=== PATIENT | male | born 1990 | race Caucasian/White ===

== ENCOUNTER 2021-06-28 23:29 | Observation (INO) ==
[2021-06-28] MEDS ORDERED: HYDROCODONE/ACETAMOPHEN 5/325MG TAB PO STA (23:49)
--- NOTE | 2021-06-29 | Emergency Department Note ---
History of Present Illness General Chief complaint: Elbow Injury/Pain Stated complaint: R ELBOW INJURY Time Seen by Provider: 06/28/21 23:41 History of Present Illness Maximum Pain Intensity: 6 This is a 31-year-old male presenting to the emergency department for evaluation of right elbow pain. 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 The patient was thrown in the ring towards an upright metal pole. The patient lost his balance and struck his elbow into the pole itself. The injury occurred about 1 hour prior to arrival. He did have some immediate numbness into the hand, however this has improved. He is reported to be up-to-date on his tetanus and there is a small laceration over the olecranon area. He does not report other injuries. Home Medications Medication Instructions Recorded Confirmed Type ondansetron 4 mg disintegrating 4 mg PO Q6H PRN #10 tab 06/29/21 Rx tablet oxycodone 5 mg tablet 5 - 10 mg PO Q4H PRN #20 tab MDD 6 06/29/21 Rx tablets Allergies Allergy/AdvReac Type Severity Reaction Status Date / Time amoxicillin Allergy Unknown HAPPENED Verified 06/29/21 00:25 A CHILD cefaclor [From Ceclor] Allergy Unknown HAPPENED Verified 06/29/21 00:25 A CHILD erythromycin base Allergy Unknown HAPPENED Verified 06/29/21 00:25 A CHILD Penicillins Allergy Unknown HAPPENED Verified 06/29/21 00:25 A CHILD Past Med/Surg History Medical History No chronic diseases present Surgical History No significant past surgical history Social History Smoking Status: Current some day smoker Do You Dip or Chew Tobacco: No; Tobacco Cessation Education Requested by Patient: No Hx Alcohol Use: Yes Alcohol type: beer Hx Substance Use: No Preferred Language: Faroese Communication Ability: Effective Minibus Driver Required: No Beliefs That Will Affect Care: None Current Living Situation: Family Other Information That Helps Us Care for You: No Feels Safe at Home: Yes Safety Concerns: Feels Safe At This Time Review of Systems A total of 10 systems reviewed and were otherwise negative Physical Exam Vital Signs Vital Signs - 24 hr 06/28/21 23:38 06/29/21 02:11 06/29/21 03:44 Temperature 36.3 C L Temperature Source Temporal Artery Scan Pulse Rate 107 H Pulse Rate [Right] 95 H 92 H Pulse Rhythm [Right] Regular Pulse Strength [Right] Normal Respiratory Rate 18 18 14 Respiratory Effort / Characteristics Non-Labored Spontaneous Respiratory Depth Normal Normal Respiratory Pattern Regular Blood Pressure 136/85 Blood Pressure [Left Arm] 119/91 96/60 L Blood Pressure Mean 102 Blood Pressure Mean [Left Arm] 100 72 Blood Pressure Position [Left Arm] Lying Pulse Oximetry 97 95 92 Oxygen Delivery Method Room Air Room Air Room Air Sepsis Recent Fever Within 48 Hours No Sepsis New/Unexplained Change in Mental Status N/A Sepsis Action Taken by Nursing No Action Required 06/29/21 06:00 06/29/21 12:01 Temperature 36.9 C Temperature Source Oral Pulse Rate 72 Pulse Rate [Right] 94 H Pulse Rhythm [Right] Pulse Strength [Right] Respiratory Rate 18 20 Respiratory Effort / Characteristics Respiratory Depth Respiratory Pattern Blood Pressure 122/68 Blood Pressure [Left Arm] 114/63 Blood Pressure Mean Blood Pressure Mean [Left Arm] 80 Blood Pressure Position [Left Arm] Pulse Oximetry 96 99 Oxygen Delivery Method Room Air Room Air Sepsis Recent Fever Within 48 Hours Sepsis New/Unexplained Change in Mental Status Sepsis Action Taken by Nursing VITALS: Vitals are noted on the nurse's note and reviewed by myself. Vital signs stable. GENERAL: Well-developed, well-nourished, white male, who is in no acute distress and resting comfortably. Patient is cooperative with the examination. HEAD: Normocephalic atraumatic. NECK: Supple without nuchal rigidity. No lymphadenopathy. No thyromegaly. Cervical spine is nontender. HEART: Regular rate and rhythm without murmurs gallops or rubs. LUNGS: Clear to auscultation bilaterally without wheezes, rales or rhonchi. No retractions or accessory muscle use. MUSCULOSKELETAL: There is notable erythema and edema surrounding the right elbow. Much of this appears at the distal humerus posteriorly. There is a 3 cm laceration over the right olecranon with minimal bleeding. Patient is with full sensation and range of motion to the hand. 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 No appreciable neurologic deficit distally. No significant tenderness of the right wrist. Patient is able to supinate and pronate, however flexing and extending at the elbow is very limited. NEURO: Patient was alert and oriented to person place and time. CN II through XII grossly intact. Course Administered Medications Docusate Sodium (Docusate Sodium 100 Mg Cap) 100 mg PO BID MAGALI Stop: 07/29/21 20:59 Last Admin: 06/29/21 20:01 Dose: Not Given Documented by: [id number] Hydromorphone HCl (Hydromorphone Inj 2 Mg/Ml Syr/Vial) 0.5 mg IV Q5M PRN PRN Reason: PACU Use Only-Pain Stop: 06/30/21 00:29 Last Admin: 06/29/21 16:50 Dose: 0.5 mg Documented by: [id number] Admin: 06/29/21 16:28 Dose: 0.5 mg Documented by: [id number] Promethazine HCl 12.5 mg/ (Sodium Chloride) 50.5 mls @ 204 mls/hr IV ONCE PRN PRN Reason: PACU Use Only-Nausea/Vomiting Stop: 06/30/21 00:30 Last Infusion: 06/29/21 17:42 Dose: 0 mls/hr Documented by: [id number] Admin: 06/29/21 16:37 Dose: 204 mls/hr Documented by: [id number] Lactated Ringer's (Lr) 1,000 mls @ 100 mls/hr IV .Q10H MAGALI Stop: 07/29/21 18:14 Last Admin: 06/29/21 19:07 Dose: 100 mls/hr Documented by: [id number] Oxycodone/Acetaminophen (Oxycodone/Acetaminophen 5mg/325mg Tab) 1 - 2 tab PO Q4H PRN PRN Reason: Pain Stop: 07/13/21 16:28 Last Admin: 06/29/21 19:51 Dose: 2 tab Documented by: [id number] Discontinued Medications Hydrocodone Bitart/Acetaminophen (Hydrocodone/Acetamophen 5/325mg Tab) 1 tab PO NOW STA Stop: 06/28/21 23:50 Last Admin: 06/29/21 00:01 Dose: 1 tab Documented by: [id number] Clindamycin Phosphate (Clindamycin Phos 300 Mg/2 Ml Vial) Confirm Administered Dose 600 mg .ROUTE .STK-MED ONE Stop: 06/29/21 12:47 Last Admin: 06/29/21 13:17 Dose: 600 mg Documented by: [id number] Hydromorphone HCl (Hydromorphone Inj 0.5 Mg/0.5 Ml Syr) Confirm Administered Dose 0.5 mg .ROUTE .STK-MED ONE Stop: 06/29/21 16:27 Last Admin: 06/29/21 16:41 Dose: Not Given Documented by: [id number] Sodium Chloride (Nss 1000ml) 1,000 mls @ 999 mls/hr IV .Q1H1M MAGALI Stop: 06/29/21 02:30 Last Infusion: 06/29/21 03:01 Dose: 0 mls/hr Documented by: [id number] Admin: 06/29/21 01:54 Dose: 999 mls/hr Documented by: [id number] Morphine Sulfate (Morphine Sulfate 4 Mg/Ml 1 Ml Carp\Vial) 4 mg IV Q30M PRN PRN Reason: Pain Stop: 07/13/21 01:20 Last Admin: 06/29/21 11:14 Dose: 4 mg Documented by: [id number] Admin: 06/29/21 08:18 Dose: 4 mg Documented by: [id number] Admin: 06/29/21 06:20 Dose: 4 mg Documented by: [id number] Ondansetron HCl (Ondansetron Inj 2 Mg/Ml 2 Ml Vial) 4 mg IV NOW STA Stop: 06/29/21 01:22 Last Admin: 06/29/21 06:27 Dose: 4 mg Documented by: [id number] Ondansetron HCl (Ondansetron Inj 2 Mg/Ml 2 Ml Vial) Confirm Administered Dose 4 mg .ROUTE .ST-MED ONE Stop: 06/29/21 06:23 Last Admin: 06/29/21 06:28 Dose: Not Given Documented by: [id number] Promethazine HCl (Promethazine Hcl Inj 25 Mg/Ml 1 Ml Vial) Confirm Administered Dose 25 mg .ROUTE .STK-MED ONE Stop: 06/29/21 16:28 Last Admin: 06/29/21 16:41 Dose: Not Given Documented by: [id number] Promethazine HCl (Promethazine Hcl Inj 25 Mg/Ml 1 Ml Vial) Confirm Administered Dose 25 mg .ROUTE .STK-MED ONE Stop: 06/29/21 16:33 Last Admin: 06/29/21 16:41 Dose: Not Given Documented by: [id number] Sodium Chloride (Sodium Chloride 0.9% 50 Ml Bag) Confirm Administered Dose 50 ml .ROUTE .[facility] ONE Stop: 06/29/21 16:36 Last Admin: 06/29/21 16:40 Dose: 50 ml Documented by: [id number] Medical Decision Making Differential Diagnosis Differential diagnosis includes, but is not limited to: Sprain, strain, fracture, dislocation, subluxation, contusion, and others Laboratory Data Result diagrams: 06/29/21 01:45 06/29/21 01:45 Lab Results 06/29/21 06/29/21 06/29/21 Range/Units 01:45 01:45 01:50 WBC 8.50 (4.8-10.8) K/uL RBC 4.97 (4.7-6.1) M/uL Hgb 14.9 (14.0-18.0) g/dL Hct 44.4 (42-52) % MCV 89.3 (80-100) fL MCH 30.0 (25-34) pg MCHC 33.6 (32-36) g/dL RDW Std Deviation 43.2 (36.4-46.3) fL RDW Coeff of Karla 13.2 (11.5-14.5) % Plt Count 258 (130-400) K/uL MPV 9.8 (7.4-10.4) fL Immature Gran % (Auto) 0.2 % Neut % (Auto) 64.4 % Lymph % (Auto) 30.2 % Jay % (Auto) 3.6 % Eos % (Auto) 1.1 % Baso % (Auto) 0.5 % Neut # (Auto) 5.47 (1.4-6.5) K/uL Lymph # (Auto) 2.57 (1.2-3.4) K/uL Jay # (Auto) 0.31 (0.11-0.59) K/uL Eos # (Auto) 0.09 (0-0.5) K/uL Baso # (Auto) 0.04 (0-0.2) K/uL Immature Gran # (Auto) 0.02 (0.00-0.02) K/uL Sodium 138 (136-145) mmol/L Potassium 4.2 (3.5-5.1) mmol/L Chloride 100 (98-107) mmol/L Carbon Dioxide 26 (21-32) mmol/L Anion Gap 12 H (3-11) BUN 13 (6-23) mg/dl Creatinine 0.94 (0.6-1.4) mg/dl Est Cr Clr Drug Dosing 112.2 ml/min Est GFR ( Amer) 123.0 ml/min Est GFR (Non-Af Amer) 106.1 ml/min BUN/Creatinine Ratio 13.8 (10-20) Glucose 149 H (70-99(Fasting)) mg/dl Calcium 8.9 (8.5-10.1) mg/dl Total Bilirubin 0.4 (0.2-1.0) mg/dl AST 24 (13-39) U/L ALT 30 (7-52) U/L Alkaline Phosphatase 55 (34-104) U/L Total Protein 7.5 (6.0-8.3) gm/dl Albumin 4.6 (3.4-5.0) gm/dl Globulin 2.9 (2.5-4.0) gm/dl Albumin/Globulin Ratio 1.6 (0.9-2) SARS-CoV-2, RNA, NAAT NEGATIVE (NEGATIVE) Imaging Data Radiologist's Impression: Elbow X-Ray 06/29/21 00:00 FL elbow RT 2V CLINICAL HISTORY: RT ELBOW ORIF COMPARISON STUDY: Right elbow radiographs June 28, [address] of the right elbow performed earlier today. FLUOROSCOPY TIME: 28 seconds. FLUOROSCOPIC IMAGES: 5 FINDINGS: Fluoroscopy was provided during open reduction and internal fixation of the right olecranon fracture. Fracture alignment has markedly improved and appears near anatomic. Plate and screw fixation is noted. There are no unexpected radiopaque foreign bodies. IMPRESSION: Fluoroscopy provided during open reduction and internal fixation of the right olecranon fracture. ACT 112: Negative or not required by law. Electronically signed by: Luiz Winn M.D. 06/29/2021 4:00 PM [facility] Narrative Physical exam and history were performed. Nursing notes, EMR, and Medication List were personally reviewed. Patient appears to have suffered injury to his right elbow as described above. There is laceration over the olecranon and this is an area of discomfort for the patient. X-rays were performed and reviewed by myself and radiology showing a comminuted fracture. This does seem to be an open fracture, as the laceration s eems to communicate in the area of biggest injury. He does not have neurologic deficit. I discussed the case with the on-call orthopedist, Dr. Nowak, who will take the patient to the operating room for washout and repair. IV access was established and IV clindamycin was provided. The wound was temporarily dressed with antibiotic ointment and pressure dressing. The patient was given IV morphine and Zofran for comfort. His tetanus is reported to be up-to-date. I did speak with the patient's mother, Lana, , at the patient's request and kept her up-to-date on his status. The patient remained in stable condition until going to the OR. Please see the orthopedic dictation for further patient course, plan, and disposition. The chart was completed utilizing [employer] Speech Voice Recognition Software. Grammatical errors, random word insertions, pronoun errors, and incomplete sentences are an occasional consequence of this system due to software limitations, ambient noise, and hardware issues. Any formal questions or concerns about the content, text, or information contained within the body of this dictation should be directly addressed to the provider for clarification. . Impression & Plan Open fracture of right olecranon Discharge Plan Visit Data Chief Complaint: Elbow Injury/Pain Stated Complaint: R ELBOW INJURY ED Provider: Yojana Gonzalez ED Midlevel Provider: Rich Robledo Discharge Problem: Open fracture of right olecranon Patient Disposition: Admitted As Inpatient Discharge Instructions Interventions: ED Discharge Assessment Last Done: 06/29/21 12:01
[2021-06-29] MEDS ORDERED: ONDANSETRON INJ 2 MG/ML 2 ML VIAL IV STA (01:21)
--- NOTE | 2021-06-29 01:23 | Orthopedic Consultation ---
Date of Service June 29, 2021 Assessment & Plan (1) Open fracture of right olecranon: Grade 1 open fracture of the right proximal extra-articular olecranon. This traumatic wound require formal irrigation debridement due to bony involvement. IV antibiotics were ministered overnight in emergency room. He is on-call to the OR today. Will obtain CT to better visualize the comminuted fracture and ensure no intra-articular extension that require stabilization. I discussed the injury with the patient in the emergency room. My recommendation is formal irrigation debridement to reduce the risk infection. For this open wound we able to explore whether they triceps removal requiring pa rtial repair. CT will better evaluate the fracture but is likely some of these fracture fragments will need to be debrided and/or internally fixed. Obtain informed consent for right elbow wound irrigation debridement, possible triceps repair and or olecranon open reduction internal fixation. We discussed the risks include but not limited to infection, neurovascular injury, need for repeat or revision surgery, nonunion/malunion, symptomatic implants, pain syndromes, blood clots and complications related anesthesia. As per be questions, demonstrate understanding, wants to proceed with surgery. His preference is to return home today if possible. We discussed follow-up in 1 to 2 weeks in orthopedic clinic. He is going to contact his primary care to help with this. History of Present Illness Reason for Consultation: Right elbow injury Requesting Physician: . 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 The elbow was covered by a short sleeve. He had subsequent swelling and noticed bleeding. He was splinted by a nurse on scene and sent to the emergency room for evaluation. Orthopedics was consulted for concern of open olecranon fracture. Patient denies any previous injuries to that elbow. Denies any numbness or tingling other than at the time of the initial injury. Allergies Allergy/AdvReac Type Severity Reaction Status Date / Time amoxicillin Allergy Unknown HAPPENED Verified 06/29/21 00:25 A CHILD cefaclor [From Ceclor] Allergy Unknown HAPPENED Verified 06/29/21 00:25 A CHILD erythromycin base Allergy Unknown HAPPENED Verified 06/29/21 00:25 A CHILD Penicillins Allergy Unknown HAPPENED Verified 06/29/21 00:25 A CHILD Home Medications Medication Instructions Recorded Confirmed Type No Known Home Medications 06/29/21 06/29/21 History Past Med/Surg History Medical History No chronic diseases present Surgical History No significant past surgical history Social History Smoking Status: Current every day smoker Preferred Language: Swedish Feels Safe at Home: Yes Review of Systems All systems reviewed & are unremarkable except as noted in HPI & below. Physical Exam Secondary trauma survey remarkable. Right upper extremity: There is a 10 to 12 mm laceration its longitudinal just posterior to the olecranon that appears full-thickness. There is no active bleeding or drainage on this inspection. He can extend his elbow against gravity. There is swelling propagating up the posterior arm. He is tender to palpation along the tricep and posterior compartment of the arm. Full active range of motion of his digits and wrist. Sensations grossly intact to light touch in all hand distributions. He has strong distal pulses. Constitutional well developed and well nourished; no acute distress and not intoxicated appearing ENMT external ear and nose normal, oropharynx normal Respiratory normal respiratory effort; no respiratory distress Cardiovascular Extremities: normal capillary refill; no edema Skin no rashes, warm and dry Psychiatric A+Ox3, euthymic affect Results & Data Results & Data Laboratory Results H & H 06/29/21 Range/Units 01:45 Hgb 14.9 (14.0-18.0) g/dL Hct 44.4 (42-52) % Diagnostic Findings Right elbow x-rays: There is a comminuted fracture that is part of the extra- articular and proximal olecranon. Potential triceps compromised by this fracture. Shadowing through the intra-articular portion makes it difficult to discern any intra-articular extension. CT would evaluate better and allow for preop planning. PG Care Time/CCT Total # of Minutes Spent Total Time Spent with Patient: Total time spent is greater than 50% in coordination of care (as documented) at patient's floor/unit and/or counseling patient: Coding Level of Care Code 75504 Inpt Consult Level 4 (57 - DECISION FOR SURGERY) Diagnoses Open fracture of right olecranon S52.021B
[2021-06-29] MEDS ORDERED: SODIUM CHLORIDE 0.9% 1000ML 1,000 ML IV SCH (01:30)
[2021-06-29 02:01] LABS: Basophils # (auto) 0.04 K/uL (0-0.2); Basophils % (auto) 0.5 %; Eosinophils # (auto) 0.09 K/uL (0-0.5); Eosinophils % (auto) 1.1 %; Hematocrit (blood only) 44.4 % (42-52); Hemoglobin 14.9 g/dL (14.0-18.0); Immature Granulocytes # (auto) 0.02 K/uL (0.00-0.02); Immature Granulocytes % (auto) 0.2 %; Lymphocytes # (auto) 2.57 K/uL (1.2-3.4); Lymphocytes % (auto) 30.2 %; Mean Corpuscular Hgb Conc 33.6 g/dL (32-36); Mean Corpuscular Volume 89.3 fL (80-100); Mean Platelet Volume 9.8 fL (7.4-10.4); Monocytes # (auto) 0.31 K/uL (0.11-0.59); Monocytes % (auto) 3.6 %; Neutrophils # (auto) 5.47 K/uL (1.4-6.5); Neutrophils % (auto) 64.4 %; Platelet Count 258 K/uL (130-400); RDW Coefficient of Variation 13.2 % (11.5-14.5); RDW Standard Deviation 43.2 fL (36.4-46.3); Red Blood Count 4.97 M/uL (4.7-6.1)
[2021-06-29 02:23] LABS: Albumin Globulin Ratio 1.6 (0.9-2); Albumin Level 4.6 gm/dl (3.4-5.0); BUN Creatinine Ratio 13.8 (10-20); Bilirubin,Total 0.4 mg/dl (0.2-1.0); Calcium 8.9 mg/dl (8.5-10.1); Creatinine Clr Calc Pharmacy 112.2 ml/min; Est GFR (Non-African American) 106.1 ml/min; Globulin 2.9 gm/dl (2.5-4.0); Potassium 4.2 mmol/L (3.5-5.1); Total Protein 7.5 gm/dl (6.0-8.3)
[2021-06-29] MEDS: MoRPHine SULFATE 4 MG/ML 1 ML CARP\\VIAL IV PRN ×3 (06:20→11:14)
[2021-06-29] MEDS ORDERED: ONDANSETRON INJ 2 MG/ML 2 ML VIAL ONE ×2 (06:22→13:31)
--- NOTE | 2021-06-29 08:03 | XRay Report ---
XR elbow RT min 3V routine CLINICAL HISTORY: Injury/laceration COMPARISON: None FINDINGS: Note is made of a displaced, markedly comminuted fracture of the posterior olecranon. Nume lilly bone fragments are noted. Fracture is displaced at least 1.2 cm. There is soft tissue gas within the posterior soft tissues of the distal to mid right upper arm. No acute fracture of the proximal r ight radius is noted. There is no acute fracture the distal right humerus. There is no evidence for a joint effusion. IMPRESSION: Displaced, markedly comminuted fracture of the posterior olecranon with numerous bone fra gments and soft tissue gas extending superiorly, as described above. Findings suggest an open olecran on fracture. ACT 112: Negative or not required by law. Electronically signed by: Luiz Winn M.D. 06/29/2021 8:02 AM
--- NOTE | 2021-06-29 09:15 | CT Scan Report ---
CT OF THE RIGHT ELBOW WITHOUT CONTRAST CLINICAL HISTORY: Olecranon fx - intra-articular extension? Preoperative. COMPARISON STUDY: Right elbow radiographs June 28, 2027 at 11:53 PM. TECHNIQUE: Axial images of the right elbow were obtained without IV contrast. Sagittal and coronal re constructions were viewed. Automated exposure control was utilized for the study. A dose lowering te chnique was utilized adhering to the principles of ALARA. FINDINGS: Note is made of an acute moderately displaced, markedly comminuted fracture of the posterio r right olecranon. Fracture is displaced up to 2 cm. There are numerous associated fracture fragments . Intra-articular extension of fracture is noted. No intra-articular bone fragments are present. Mult iple locules of intra-articular gas are noted. There is gas adjacent to the fracture as well as exten ding superiorly into the posterior aspect of the distal right upper arm. No acute fracture of the dis dani right humerus or proximal right radius is identified. No osseous lesions are identified. Soft tis sues of the right elbow are suboptimally assessed by CT. Posterior soft tissue swelling is noted as w ell as a skin defect consistent with laceration. A few tiny subcutaneous radiodensities measure up to 3 mm. IMPRESSION: 1. Acute moderately displaced markedly comminuted posterior right olecranon fracture with intra-artic ular extension of fracture. No intra-articular bone fragments. Soft tissue gas consistent with open f racture with intra-articular extension of gas. 2. Posterior right elbow soft tissue swelling with laceration. A few tiny subcutaneous densities like ly reflect bone fragments although foreign bodies could appear similar. ACT 112: Negative or not required by law. Electronically signed by: Luiz Winn M.D. 06/29/2021 9:14 AM
--- NOTE | 2021-06-29 09:50 | Anesthesiology Consultation ---
Date of Service June 29, 2021 Assessment & Plan Chart Review Chart Review: Acceptable Risk for Surgery and Patient NOT seen in Pre Admission Testing Consults Requested none ASA ASA2 Proposed Anesthesia Anesthesia Type: General Regional Regional Laterality: Right Site: Supraclavicular Additional Comments: covid test neg. History Surgery Operation Date: 06/29/21 10:00 Proposed Procedures p Incision and Drainage Extremity(Right) - Christopher Nowak MD s Biceps Tendon Rupture Repair(Right) - Christopher Nowak MD Height/Weight Height: 5 ft 6 in Weight: 81.8 kg Allergies Allergy/AdvReac Type Severity Reaction Status Date / Time amoxicillin Allergy Unknown HAPPENED Verified 06/29/21 00:25 A CHILD cefaclor [From Ceclor] Allergy Unknown HAPPENED Verified 06/29/21 00:25 A CHILD erythromycin base Allergy Unknown HAPPENED Verified 06/29/21 00:25 A CHILD Penicillins Allergy Unknown HAPPENED Verified 06/29/21 00:25 A CHILD Medications Home Medications Medication Instructions Recorded Confirmed Last Taken No Known Home Medications 06/29/21 06/29/21 Unknown Active Medications Generic Name Dose Route Start Last Admin Trade Name Freq PRN Reason Stop Dose Admin Morphine Sulfate 4 mg 06/29/21 01:21 06/29/21 08:18 Morphine Sulfate 4 Mg/Ml 1 Ml Carp\Vial IV 07/13/21 01:20 4 mg Q30M PRN Administration Pain Past Medical History Medical History No chronic diseases present Exercise / Class Metabolic Activity 1 > 8 Run/Swim/Ski/Tennis Past Surgical History Surgical History No significant past surgical history Past Anesthesia History No Hx of Anesthesia Complications and No Family Hx of Anesthesia Complications History of PONV No Hx of PONV and No Hx of Motion Sickness Social History Smoking Status: Current every day smoker tobacco type: cigarettes Physical Exam Vital Signs Last Vital Signs Temp 36.3 C L 06/28/21 23:38 Pulse 94 H 06/29/21 06:00 Resp 18 06/29/21 06:00 BP 114/63 06/29/21 06:00 Pulse Ox 96 06/29/21 06:00 Testing Laboratory Results 06/29/21 01:45 06/29/21 01:45
[2021-06-29] MEDS ORDERED: fentaNYL citrate 100 MCG/2 ML VIAL ONE (09:53)
[2021-06-29] MEDS ORDERED: MIDAZOLAM HCL 1 MG/ML 2ML VIAL ONE (09:53)
[2021-06-29] MEDS ORDERED: BUPIVACAINE 0.5 % 5 MG/1 ML MPF 30ML VIAL ONE (12:00)
[2021-06-29] MEDS ORDERED: CLINDAMYCIN PHOS 300 MG/2 ML VIAL ONE (12:46)
[2021-06-29] MEDS ORDERED: PROPOFOL IV EMULSION 10 MG/ML 20 ML VIAL IV ONE (13:31)
[2021-06-29] MEDS ORDERED: GLYCOPYRROLATE 0.2 MG/ML VIAL ONE (13:31)
[2021-06-29] MEDS ORDERED: NEOSTIGMINE METHYLSULFATE 1 MG/ML 10ML VIAL ONE (13:31)
[2021-06-29] MEDS ORDERED: DEXAMETHASONE SOD INJ 4 MG/ML VIAL ONE (13:31)
[2021-06-29] MEDS ORDERED: ROCURONIUM BROMIDE 10 MG/ML 5 ML VIAL IV ONE (13:31)
[2021-06-29] MEDS ORDERED: LIDOCAINE 2% 2 ML VIAL/AMP(20MG/ML) INFIL ONE (13:31)
[2021-06-29] MEDS ORDERED: KETOROLAC 30 MG/ML VIAL ONE (15:36)
--- NOTE | 2021-06-29 16:01 | Fluoroscopy Report ---
FL elbow RT 2V CLINICAL HISTORY: RT ELBOW ORIF COMPARISON STUDY: Right elbow radiographs June 28, [address] of the right elbow performed [facility] today. FLUOROSCOPY TIME: 28 seconds. FLUOROSCOPIC IMAGES: 5 FINDINGS: Fluoroscopy was provided during open reduction and internal fixation of the right olecranon fracture. Fracture alignment has markedly improved and appears near anatomic. Plate and screw fixati on is noted. There are no unexpected radiopaque foreign bodies. IMPRESSION: Fluoroscopy provided during open reduction and internal fixation of the right olecranon fracture. ACT 112: Negative or not required by law. Electronically signed by: Luiz Winn M.D. 06/29/2021 4:00 PM
--- NOTE | 2021-06-29 16:18 | Operative Report ---
PG Post Operative Report Pre & Post Diagnosis Operation Date: 06/29/21 10:00 Pre-Op Diagnosis: Open fracture of right olecranon Post-Op Diagnosis: Open fracture of right olecranon, triceps rupture I identified the patient and participated in the time-out.: Yes Procedure Operation Date: 06/29/21 10:00 Actual Procedures p Incision and Drainage Extremity(Right) - Christopher Nowak MD s Triceps Tendon Repair(Right) - Christopher Nowak MD s Open Reduction Internal Fixation Elbow - Christopher Nowak MD Surgeon Christopher Nowak MD Metal Fitter Ariel Barclay PA-C Estimated Blood Loss 5 Findings See Below This GustiloAnderson grade 2 olecranon fracture with disruption of the triceps insertion on the ulnar side. There was comminution and intra-articular extension to the most proximal aspect of the olecranon. It was stabilized with 2 interfragmentary 2.7 millimeter screws, variable angle proximal olecranon locking plate, and a tunnel double row triceps repair. All [employer] hardware: 2.7/3.5 variable angle locking proximal olecranon plate, 2.7 mm cortical screws of 18 and 48 and 50 mm in length, 2.7 variable angle locking screw 26 and 30 mm, and 3.5 cortical screws of 20 and 24 mm. Tricep repair included 2 Arthrex 2 mm fiber tape whipstitches secured into a single 4.75 bio composite push lock after passage thru bone tunnels. 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 He immediate pain and subsequent bleeding. He difficulty with triceps extension due to pain. He was admitted through the emergency room with an open olecranon fracture. Has been n.p.o. overnight for irrigation debridement today after receiving IV antibiotics in the ER. We discussed the open nature of the injury requirement for parenteral antibiotic therapy and formal debridement. Also discussed his surgery may involve ORIF of the olecranon plus or minus the triceps repair depending on the nature of the injury pattern after intraoperative inspection. Discussed the risk benefits in detail, as outlined in the preop note. Informed consent was obtained in the ER. Description of Procedure On the day of surgery, the patient was greeted in the preoperative holding area. The informed consent was reviewed and confirmed by myself and the patient. The patient identified the surgical site and was marked by me. The patient was then turned over to anesthesia. The patient was taken the operating room. Anesthesia was induced. He was then placed in lateral decubitus position with a beanbag and axillary roll. The operative extremity was draped over a bone foam humerus pillow secured with a radiolucent hand table passed underneath his torso padding. Spot fluoroscopic views were obtained to ensure adequate visualization. Nonsterile tourniquet was placed high in the arm. The operative upper extremity was prepped and draped usual sterile fashion. Surgical timeout was called by the chemistry technician nurse and verified by present. Antibiotics been infused and equipment is available and functional. We exsanguinated the extremity with the Esmarch bandage and the tourniquet was inflated to 250 mmHg for a total of 120 minutes. Incision was planned and carried out sharply over the olecranon in a curvilinear fashion over the most prominent aspect. The traumatic wound was about 2 cm and the edges were incised back to viable skin. Subcutaneous bursal tissue was excised in the injury zone. We explored the fracture site and this involved comminution of the ulnar side with a sagittal split of the olecranon involving some the intra-articular fragments at the most proximal aspect of the olecranon. This communicated down to the ulnar groove. The triceps insertion had a longitudinal split and was traumatically dissected away from some of the proximal fragments. This disconnected the triceps on its ulnar 50% footprint. We exploited the sagittal nature of this triceps split to visualize the proximal fragments. Attention was then directed to the ulnar nerve to ensure its safety. Dissection was carried out using tenotomy scissors in the usual pattern, unroofing the cubital tunnel. A vessel loop was placed around the ulnar nerve to identify and keep it safe throughout the dissection and procedure. The fracture fragments were thoroughly irrigated. 2 L of normal saline was run through the joint and around the fracture fragments. All fracture hematoma and debris was removed. There were 3 main fracture fragments that were comminuted but salvageable. There was most proximal aspect which involved a significant piece of the posterior cartilage. Is also comminuted piece of the ulnar side of the cortex and deep intramedullary bone was able to be fit back in. Provisional reduction was accomplished using [id number] clamps and 0.45 K wires. The dorsal aspect of the ulna was approached and subperiosteal elevation was carried out on the medial lateral aspect of the ulna. We used fluoroscopy to confirm articular congruity and fracture reduction. Reduction was acceptable. A 2.7/3.5 variable angle locking plate from [employer] was then positioned using fluoroscopy. This captured the proximal fragment well. It was slid down over the provisional K wire. It was then pinned distally along the shaft. A 2 mm drill bit was then passed capturing the proximal fragment and directed distal and dorsal. This was a bicortical trajectory. A 2.7 millimeter screw of 48 mm length was then placed to achieve compression and stabilize the most proximal articular fragment. The provisional K wire was removed and the variable angle drill guide was used to direct another cortical screw with 50 mm in length as a second purchase on that proximal fragment the did reduce the joint well. We then moved to the shaft and use the sliding compression hole to sink down the plate to the shaft limit further reduce the fracture. With the main articular fracture secured, directed attention to the ulnar wall the olecranon. I had to reposition this fragment on its small K wire to better fit into the cortical keys. We then used another 2 7 interfragmentary screw in a transverse bicortical fashion to capture this piece. The variable angle locking guide was used once again to achieve another locking purchase on the proximal side just distal to the articular margin. A secondary shaft screw was placed to complete the fixation. After the fracture fixation we still had a bare olecranon on the ulnar side of the triceps footprint. For that reason I performed a standard tunnel double row repair using the Paci technique. Fluoroscopic imaging was used to direct 2 mm drills on either side of the plate through the proximal fragment and exiting on the dorsal side. Da Silva suture passer was used to pass shuttling sutures. These were maintained with a hemostat. Attention was directed to the triceps. I ran 2 separate 2 mm Arthrex fiber tapes and running locking quarters so that before suture tails. A separate fiber link suture was then passed down through the distal locking portion of the whipstitches on either side. The shuttling suture was used to pass the whi pstitch tails with the additional fiber link tail from proximal to distal through our bone tunnels. We then use 1 tail from each tunnel and passed it through the opposite fiber link to bring the limb of suture back down through the opposite tunnel. This was repeated to perform a standard Xbox style double row compression bridge. Suture tails were brought distally. A 3.5 mm drill was used to create a fixed wing pilot hole which was expanded right by rotating the drill. I then deployed a 4.75 bio composite swivel lock anchor into the ulna at this position. Suture was brought underneath the plate to cross over to get to this radial side. This secured the suture well, however the swivel lock anchor was about 50% deployed before it broke due to the hardness of the bone. There was secure fixation of the suture with likely more than 50% of the anchor. This completed our construct. Thorough irrigation was then carried out. 0 Vicryl suture was used to close the peritenon followed by closing robust bursal tissue layer over the plate and triceps repair footprint. 0 Vicryl was then used in the deep subcutaneous tissues to cover the olecranon followed by several interrupted 3-0 Vicryl sutures in the dermal layer. Final skin closure was accomplished with hermilo. Wounds are dressed with sterile Xeroform, sterile gauze, ABD and web roll to contain the dressing. The arm was placed in a standard posterior splint at approximately 80 degrees of elbow flexion. Disposition: The plan is to remain in the hospital for parenteral antibiotic therapy for a total of 24 hours of treatment. He will be discharged to home tomorrow. The patient will be nonweightbearing to the right upper extremity and remain in the splint until 2-week follow-up appointment. He is from [facility], and plans to use his primary care physician to find an orthopedic follow-up. I recommend following our triceps repair rehabilitation program which will be provided. The plan will be nonweightbearing for 6 weeks. He should transition to a removable elbow range of motion or fracture brace at the initial 1-2-week postop. With acceptable radiographs, range of motion may start for week 3 from 30 to 60 degrees, weeks 5 and 6 from 15 to 90 degrees, and advance as tolerated after week 6, pending adequate radiographs. He should have x-rays at 2 weeks and 6 weeks and 3 months until radiographic union. The patient was prescribed routine postoperative pain medication. Physician behavioral modification assistant attestation: Ariel Barclay PA-C was present and scrubbed for the duration of the case. He was essential to prepping/draping, patient positioning, retraction, and assistance with wound closure. I attest to the content of the Intraoperative Record and any orders documented therein. Any exceptions are noted below.
--- NOTE | 2021-06-29 16:23 | Post Operative Brief Note ---
PG Immediate Post Op with CF Date of Surgery June 29, 2021 Pre & Post Diagnosis Operation Date: 06/29/21 10:00 Pre-Op Diagnosis: Open fracture of right olecranon Post-Op Diagnosis: Open fracture of right olecranon, triceps disruption I identified the patient and participated in the time-out.: No Procedure Operation Date: 06/29/21 10:00 Actual Procedures p Incision and Drainage Extremity(Right) - Christopher Nowak MD s Open Triceps Tendon Repair(Right) - Christopher Nowak MD s Open Reduction Internal Fixation Olecranon(Right) - Christopher Nowak MD Surgeon Christopher Nowak MD [employer] Farmworker Ariel Barclay PA-C Estimated Blood Loss 50 Findings Consistent with Post-Op Diagnosis Anesthesia Type General Regional
[2021-06-29] MEDS ORDERED: HYDROmorphone INJ 0.5 MG/0.5 ML SYR ONE (16:26)
[2021-06-29] MEDS ORDERED: PROMETHAZINE HCL INJ 25 MG/ML 1 ML VIAL ONE ×2 (16:27→16:32)
[2021-06-29] MEDS ORDERED: ePHEDrine sulfate 50 MG/ML AMP IV PRN (16:28)
[2021-06-29] MEDS ORDERED: NALOXONE HCL 0.4 MG/1 ML VIAL/CARP IV PRN (16:28)
[2021-06-29] MEDS ORDERED: ATROPINE SULFATE 0.1 MG/ML 10ML SYR IV PRN (16:28)
[2021-06-29] MEDS ORDERED: FLUMAZENIL 0.1 MG/1 ML 10 ML VIAL IV PRN (16:28)
[2021-06-29] MEDS: HYDROmorphone INJ 2 MG/ML SYR/VIAL IV PRN ×2 (16:28→16:50)
[2021-06-29] MEDS: HYDROmorphone INJ 0.5 MG/0.5 ML SYR IV PRN ×2 (16:28→16:33)
[2021-06-29] MEDS ORDERED: PROMETHAZINE HCL 12.5 MG in SODIUM CHLORIDE 0.9% 50 ML IV PRN (16:28)
[2021-06-29] MEDS ORDERED: LABETALOL HCL IV 5 MG/ML 20ML IV PRN (16:28)
[2021-06-29] MEDS ORDERED: ONDANSETRON INJ 2 MG/ML 2 ML VIAL IV PRN (16:29)
[2021-06-29] MEDS ORDERED: ACETAMINOPHEN 500 MG TAB PO SCH (16:30)
[2021-06-29] MEDS ORDERED: SODIUM CHLORIDE 0.9% 50 ML BAG ONE (16:35)
--- NOTE | 2021-06-29 16:59 | XRay Report ---
XR elbow RT 2V CLINICAL HISTORY: Postoperative evaluation. COMPARISON: Right elbow radiographs June 28, [address] of the right elbow June 29, 2021. FINDINGS: Interval open reduction and internal fixation of the right olecranon fracture is noted wit h plate and screws. Fracture alignment has markedly improved and appears near anatomic. Skin hermilo are present. There are multiple punctate indeterminate radiodensities which project posterior to the right elbow. IMPRESSION: 1. Status post open reduction and internal fixation of the right olecranon fracture. 2. Punctate indeterminate radiodensities which project posterior to the right elbow. ACT 112: Negative or not required by law. Electronically signed by: Luiz Winn M.D. 06/29/2021 4:58 PM
--- NOTE | 2021-06-29 17:49 | Anesthesiology Progress Note ---
Date of Service June 29, 2021 Anesthesia Post Procedure Vital Signs Vital Signs: Temp Pulse Pulse Pulse Resp BP BP 06/29/21 17:20 69 15 155/92 H 06/29/21 17:10 36.3 C L 65 18 150/88 H 06/29/21 17:00 62 15 147/92 H 06/29/21 16:50 72 16 179/93 H 06/29/21 16:40 72 20 168/106 H 06/29/21 16:30 67 17 165/105 H 06/29/21 16:22 36.2 C L 80 16 145/102 H 06/29/21 12:01 36.9 C 72 20 122/68 06/29/21 06:00 94 H 18 114/63 06/29/21 03:44 92 H 14 96/60 L 06/29/21 02:11 95 H 18 119/91 06/28/21 23:38 36.3 C L 107 H 18 136/85 Pulse Ox 06/29/21 17:20 94 06/29/21 17:10 95 06/29/21 17:00 100 06/29/21 16:50 99 06/29/21 16:40 99 06/29/21 16:30 99 06/29/21 16:22 98 06/29/21 12:01 99 06/29/21 06:00 96 06/29/21 03:44 92 06/29/21 02:11 95 06/28/21 23:38 97 Pain Intensity Right Elbow: Pain Intensity: 8 Transfer of Care Handoff Completed per policy Notes Mental Status: alert / awake / arousable Patient Amnestic to Procedure: Yes Nausea / Vomiting: adequately controlled Pain: adequately controlled Airway Patency, RR, SpO2: stable & adequate BP & HR: stable & adequate Hydration State: stable & adequate Anesthetic Complications: no major complications apparent
[2021-06-29] MEDS: LACTATED RINGER'S 1,000 ML IV SCH (19:07)
[2021-06-29] MEDS: oxyCODONE/ACETAMINOPHEN 5mg/325mg TAB PO PRN (19:51)
[2021-06-29] MEDS: DOCUSATE SODIUM 100 MG CAP PO SCH (20:01)
[2021-06-29] MEDS: CLINDAMYCIN 900 MG in DEXTROSE 5% 50 ML IV SCH (22:33)
[2021-06-30] MEDS: oxyCODONE/ACETAMINOPHEN 5mg/325mg TAB PO PRN ×3 (02:16→12:10)
[2021-06-30] MEDS: LACTATED RINGER'S 1,000 ML IV SCH (03:26)
[2021-06-30] MEDS: CLINDAMYCIN 900 MG in DEXTROSE 5% 50 ML IV SCH ×2 (05:31→13:50)
[2021-06-30] MEDS ORDERED: CLINDAMYCIN 600 MG/54 ML BAG IV SCH (06:00)
[2021-06-30] MEDS: DOCUSATE SODIUM 100 MG CAP PO SCH (07:52)
--- NOTE | 2021-06-30 09:33 | Orthopedic Progress Note ---
Date of Service June 30, 2021 Assessment & Plan (1) Open fracture of right olecranon: s/p Incision and Drainage R elbow, Open R Triceps Tendon Repair, ORIF R olecreranon (DOS: 06/29/2021) -Making uncomplicated progress on POD 1 -Pain managed adequately with PO oxycodone -Maintain splint x 2 weeks, sling for comfort while splinted -NWB RUE -Clindamycin x 24 hrs total, last dose will be this afternoon. Dispo: Will be stable for discharge home after his afternoon dose of clindamycin today. With regard to follow up, he lives in [place] and is going to arrange follow up with Orthopedics there. Recommend follow up 10-14 days after surgery for staple removal and transition from splint to range of motion brace. I discussed this with him today. He will call the office with contact information for the Orthopedic practice in [place] he will be following up and we can fax them his records. Subjective Doing well today. Pain manageable with oxycodone. Some tingling in fingers, improved from prior to surgery. Review of Systems All systems reviewed & are unremarkable except as noted in HPI & below. Physical Exam General: Pleasant 31 year old male in [facility]. RUE: splint in place, c/d/i. Full active motion of wrist, fingers, and shoulder. Distally N/V/I. Results & Data Results & Data Laboratory Results None recent . Diagnostic Findings Post op XRs reviewed. Stable fixation, punctate radiolucencies noted in client services analyst aspect of elbow. PG Care Time/CCT Total # of Minutes Spent Total Time Spent with Patient: Total time spent is greater than 50% in coordination of care (as documented) at patient's floor/unit and/or counseling patient: Coding Level of Care Code 08992 Post Operative Follow-Up Diagnoses Open fracture of right olecranon S52.021B
--- NOTE | 2021-07-02 08:13 | Discharge Summary ---
Date of Service July 02, 2021 Admission HPI (Per Admitting) History of Present Illness Reason for Consultation: Right elbow injury Requesting Physician: . 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 The elbow was covered by a short sleeve. He had subsequent swelling and noticed bleeding. He was splinted by a nurse on scene and sent to the emergency room for evaluation. Orthopedics was consulted for concern of open olecranon fracture. Patient denies any previous injuries to that elbow. Denies any numbness or tingling other than at the time of the initial injury. Admission Exam (Per Admitting) Secondary trauma survey remarkable. Right upper extremity: There is a 10 to 12 mm laceration its longitudinal just p osterior to the olecranon that appears full-thickness. There is no active bleeding or drainage on this inspection. He can extend his elbow against gravity. There is swelling propagating up the posterior arm. He is tender to palpation along the tricep and posterior compartment of the arm. Full active range of motion of his digits and wrist. Sensations grossly intact to light touch in all hand distributions. He has strong distal pulses. Principal Diagnosis Same as "Discharge Diagnosis" noted below under Discharge Instructions. Discharge Exam General: Pleasant 31 year old male in [place]. RUE: splint in place, c/d/i. Full active motion of wrist, fingers, and shoulder. Distally N/V/I. Discharge Data Procedures Performed Operation Date: 06/29/21 10:00 Actual Procedures p Incision and Drainage Extremity(Right) - Christopher Nowak MD s Open Triceps Tendon Repair(Right) - Christopher Nowak MD s Open Reduction Internal Fixation Olecranon(Right) - Christopher Nowak MD Ordered Studies 06/29/21 FL elbow RT 2V Routine 06/29/21 08:34 CT elbow RT wo con Stat 06/29/21 12:02 US - OR guided needle placemen Stat Hospital Course (1) Open fracture of right olecranon: Admitted for 24 hours of post operative antibiotics due to open fracture. No post operative complications. Discharged home without issue. PG Care Time/CCT Total # of Minutes Spent Total Time Spent with Patient: Total time spent is greater than 50% in coordination of care (as documented) at patient's floor/unit and/or counseling patient: Discharge Plan Discharge Items Patient Disposition: Home - Self-Care Reason For Visit: RIGHT OPEN OLECRANON FRACTURE Discharge Diagnosis: right open olecranon fracture with triceps disruption Activity: Per Instructions section Non-emergency contact: Surgeon Call non-emergency contact if: you have any medication questions, your pain is not controlled and your temperature is above 101 Follow-up/Referrals: Christopher Nowak MD [Surgeon] - 07/14/21 10:45 am PCP,NO [Primary Care Provider] - Diet: Regular Addtl Attending Provider Instructions: Christopher Nowak M.D. [facility] [address] [facility] [address] [facility], [place] [address] POSTOPERATIVE INSTRUCTIONS UPPER EXTREMITY FRACTURE INSTRUCTIONS SPLINT/WOUND CARE: Leave your splint in place and keep the area clean and dry. Your splint will be taken down at your postop clinic visit. Do not remove it yourself. You should be completely non-weightbearing. Rest the arm in the sling for comfort. You may adjust the sling as needed. You can flex and extend and wiggle your fingers as much as the splint allows, w hen tolerable. Finger motion will help with swelling and is encourage. You can type, use your smartphone, and/or mouse as tolerated. If the splint becomes wet, dirty, uncomfortable, or loose, please call the Orthopedic Clinic ([phone]) to arrange to be evaluated. Please call the Ortho Clinic if you have any questions or concerns. PAIN CONTROL: Elevation is your best friend. Swelling is simply fluid. Elevation will allow the fluid to run down hill, reduce swelling, and decrease pain. Medications: 1. Oxycodone (OxyIR) 1-2 tablet(s) orally every 4 hours for pain as needed. Use with Tylenol. Begin tapering OxyIR as soon as possible: reduce from 2 to 1 pills per dose, then spread out the doses over greater time intervals, then try to use only for therapy or for comfort while sleeping. Continue to use regular Tylenol until pain subsides. 2. OVER THE COUNTER Tylenol (generic = acetaminophen): 975-1000 mg every 8 hours orally. Regular dosing of Tylenol is an important part of your baseline pain control. Do not taper Tylenol until you have successfully tapered off of regular OxyIR. Do not take more than 3000mg of Tylenol per day. 3. Zofran: 1 tablet orally every 6 hours as needed for nausea related to anesthesia, pain, and narcotic medications. 4. Colace (100mg): take 1-2 tabs twice daily to avoid constipation from OxyIR or other narcotics. OVER THE COUNTER WHEN TO CALL. If you develop any of the following symptoms, please contact the [facility] at [phone] or the Emergency room (after hours): Temperature greater than 101 taken twice, difficulty breathing, bleeding, fever and chills, increased pain unrelieved by pain meds, uncomfortable cast or splint, or any other concerns. Pending Studies at Discharge: No Stand-Alone Forms: My [facility] [employer] Medications and DC Order Prescriptions: New oxycodone 5 mg tablet 5 - 10 mg PO Q4H MDD 6 tablets PRN (Reason: pain) Qty: 20 RF: 0 ondansetron 4 mg tablet,disintegrating 4 mg PO Q6H PRN (Reason: nausea and vomiting) Qty: 10 RF: 0 Discharge Orders: Discharge Order (Routine); Ordered 06/30/21 Ordered By: Chris Banerjee/Other Patient Handouts: Managing Post-Op Pain at Home Admission Data Admit Date/Time: 06/29/21 12:57 Attending Provider: Christopher Nowak Admit Provider: Christopher Nowak Primary Care Provider: PCP,NO Other Interventions: Discharge Summary Assessment (RN) Last Done: 06/30/21 14:04
== END 2021-06-30 15:00 | disposition home or self-care (01) ==
LOC: ED 23:29 → OR 06-29 12:00 → INTOOBSV 06-29 12:57 → 3N 06-29 12:57
DX: W22.8XXA Striking against or struck by other objects, initial encounter; Y93.72 Activity, wrestling; S52.021B Displaced fracture of olecranon process without intraarticular extension of right ulna, initial encounter for open fracture type I or II; Z88.8 Allergy status to other drugs, medicaments and biological substances; Z88.0 Allergy status to penicillin; Z20.822 Contact with and (suspected) exposure to COVID-19; F17.210 Nicotine dependence, cigarettes, uncomplicated